=== PATIENT | female | born 2000 | race Caucasian/White ===

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

== ENCOUNTER → 2021-09-09 | Outpatient (CLI) | payer OTHER ==
[2021-09-09 13:37] LABS: African American GFR (CKD) >90 (>60 ml/min/1.73 sqM); Anion Gap 8 mmol/L; Blood Urea Nitrogen 5 mg/dL (7-17); Calcium 9.4 mg/dL (8.4-10.2); Carbon Dioxide 26 mmol/L (22-30); Chloride 102 mmol/L (98-107); Glucose 88 mg/dL (74-99); Non-African American GFR(CKD) 88 (>60 ml/min/1.73 sqM); Potassium 4.5 mmol/L (3.5-5.1); Sodium 136 mmol/L (137-145)
--- NOTE | 2021-09-09 13:51 | US ---
EXAMINATION TYPE: US kidneys/renal and bladder DATE OF EXAM: 09/09/2021 COMPARISON: 09/24/2018 CLINICAL HISTORY: 20-year-old female N12 Tubulo-interstitial nephritis. TECHNIQUE: Multiple sonographic images of the kidneys and bladder are obtained. FINDINGS: EXAM MEASUREMENTS: Right Kidney: 10.2x4.9x3.5 cm Left Kidney: 11.2x5.0x4.2 cm Right Kidney: wnl Left Kidney: wnl Bladder: wnl Bilateral Jets seen: Right jet seen. IMPRESSION: No hydronephrosis.
== END | disposition home or self-care (01) ==
LOC: RADUSWWP 12:13
PROVIDERS: ATTEND Family Medicine
DX: N12 Tubulo-interstitial nephritis, not specified as acute or chronic (principal)
CPT/HCPCS: 76770; 80048

== ENCOUNTER → 2025-01-18 | Outpatient (CLI) | payer MEDICAID ==
[2025-01-18 20:22] LABS: Thyroid Peroxidase Antibodies 10.8 U/mL (0.0-33.0)
[2025-01-18 21:58] LABS: ALT 12 U/L (8-44); AST 20 U/L (13-35); Albumin 4.6 g/dL (3.8-4.9); Albumin/Globulin Ratio 2.09 Ratio (1.60-3.17); Alkaline Phosphatase 60 U/L (41-126); Calcium 9.5 mg/dL (8.7-10.3); Carbon Dioxide 23.7 mmol/L (21.6-31.8); Chloride 104 mmol/L (96-109); Chol/HDL Ratio 2.39 Ratio; Globulin 2.2 g/dL (1.6-3.3); Glucose 100 mg/dL (70-110); Iron 104 UG/DL (50-170); LDL Cholesterol,Calculated 61.3 mg/dL (0.0-131.0); Potassium 3.9 mmol/L (3.5-5.5); Rheumatoid Factor, Qnt <15 IU/mL (0-15); Sodium 142 mmol/L (135-145); Total Bilirubin 0.6 mg/dL (0.3-1.2); Total Iron Binding Capacity 298 UG/DL (228-460); Total Protein 6.8 g/dL (6.2-8.2); VLDL Calculation 8.98 mg/dL (5.00-40.00)
== END | disposition home or self-care (01) ==
LOC: LABWHC1 14:37
PROVIDERS: ATTEND Nurse Practitioner Family
DX: Z76.89 Persons encountering health services in other specified circumstances (principal); K21.00 Gastro-esophageal reflux disease with esophagitis, without bleeding; M25.541 Pain in joints of right hand; M25.542 Pain in joints of left hand; E58 Dietary calcium deficiency; E55.9 Vitamin D deficiency, unspecified; F41.9 Anxiety disorder, unspecified; Z68.1 Body mass index [BMI] 19.9 or less, adult
CPT/HCPCS: 36415; 80053; 80061; 82306; 82728; 83540; 83550; 86376; 86431; 86800

== ENCOUNTER → 2025-02-14 | Outpatient (CLI) | payer MEDICAID ==
--- NOTE | 2025-02-14 15:21 | US ---
EXAMINATION TYPE: US pelvis complete transvag DATE OF EXAM: 02/14/2025 COMPARISON: NONE CLINICAL INDICATION: Female, 24 years old with history of N92.0 EXCESSIVE AND FREQUENT MENSTRUATION W ITH REG; Irregular menses. Generalized pelvic pain with more discomfort on the right. TECHNIQUE: Transvaginal (TV) and Transabdominal (TA) . Transabdominal grayscale sonographic images of the pelvis were acquired. Transvaginal sonographic im ages were medically necessary to better assess the following anatomy: Endometrium Doppler imaging: Not performed. FINDINGS: Date of LMP: 01/08/2025, G0 EXAM MEASUREMENTS: Uterus: 5.7 x 4.6 x 3.3 cm Endometrial Stripe: 0.4 cm Right Ovary: 2.5 x 1.8 x 1.5 cm Left Ovary: 2.7 x 1.4 x 1.5 cm 1. Uterus: Anteverted Peripheral vascularity seen in myometrium. 2. Endometrium: wnl 3. Right Ovary: wnl 4. Left Ovary: wnl 5. Bilateral Adnexa: Prominent vessels 6. Posterior cul-de-sac: free fluid Small amount of free fluid in the pelvis is nonspecific but favors physiologic. IMPRESSION: No suspicious findings to account for patient's symptoms. O-RADS 2021 [email or web address] [facility], , 02/14/2025 3:19 PM
== END | disposition home or self-care (01) ==
LOC: RADUSWWP 14:19
PROVIDERS: ATTEND Family Medicine
DX: N92.0 Excessive and frequent menstruation with regular cycle (principal)
CPT/HCPCS: 76830; 76856